=== PATIENT | female | born 1975 | race Caucasian/White ===

== ENCOUNTER → 2017-06-07 | Outpatient (CLI) | payer OTHER, BC ==
[~2017-06-07] MED LIST: BUPIVACAINE MPF 0.25% 10 ML VIAL. ONE; IV NORMAL SALINE 250ML 250 ML ONE; LIDOCAINE 1% PF 30 ML VIAL. ONE; MIDAZOLAM HCL PF 2 MG/2 ML VIAL. ONE; methylPREDNISolone ACETATE 40 MG/ML VIAL. ONE; oxyCODONE/APAP 7.5/325 1 TAB TABLET ONE
== END | disposition home or self-care (01) ==
LOC: SURG 10:32
PROVIDERS: ATTEND Anesthesiology Pain Medicine
DX: M53.3 Sacrococcygeal disorders, not elsewhere classified (principal); M19.90 Unspecified osteoarthritis, unspecified site; D64.9 Anemia, unspecified
CPT/HCPCS: 64635; 64636; J1030; J2001; J2250; J3010; J3490; J7050

== ENCOUNTER → 2018-08-22 | Outpatient (CLI) | payer OTHER, BC | END | disposition home or self-care (01) | LOC: SURG 11:25 | PROVIDERS: ATTEND Anesthesiology Pain Medicine | DX: M51.16 Intervertebral disc disorders with radiculopathy, lumbar region (principal); M96.1 Postlaminectomy syndrome, not elsewhere classified; M53.3 Sacrococcygeal disorders, not elsewhere classified; K51.00 Ulcerative (chronic) pancolitis without complications; Z79.899 Other long term (current) drug therapy; Z91.040 Latex allergy status | CPT/HCPCS: 99214 ==